=== PATIENT | male | born 1990 | race Caucasian/White ===

== ENCOUNTER 2016-10-23 12:09 | Emergency (ER) | payer SELFPAY ==
[2016-10-23] MEDS ORDERED: Famotidine IV* 10 MG/ML 2 ML (20 mg) IV SLOW PU ONE (12:19)
[2016-10-23] MEDS ORDERED: diPHENhydraMINE IV* 50 MG/ML 1 ml VIAL (BENADRYL) IV ONE (12:19)
[2016-10-23] MEDS ORDERED: NS 0.9% 1000 ML* 1,000 ML IV ONE (12:19)
[2016-10-23] MEDS ORDERED: Metoclopramide IV* 5 MG/ML 2 ML VIAL IV ONE (12:19)
[2016-10-23] MEDS ORDERED: methylPREDNISolone 125 MG* 2 ML VIAL IV ONE (12:35)
[2016-10-23 14:59] VITALS: BP 107/43
--- NOTE | 2016-10-23 22:10 | ED ---
Rhianna Valentin Thomas, scribed for Arnaldo Davis MD on 10/23/16 at 1312 . Allergic Reaction/Systemic - HPI Summary HPI Summary: The pt is a 26 y/o M presenting to the ED c/o an allergic reaction s/p a wasp sting to the thigh of his LLE at approximately 11:40. He is diffusely erythematous and reports swelling in his face. He denies SOB, throat tightening , dysphagia, or any pain at this time. The patient has treated the pain with topical aloe BUNDLE HELPER. PMHx: previously healthy. PSHx: neck surgery. SHx: smoking, some drinking. FHx: negative for bee allergy. - History of Current Complaint Chief Complaint: EDAllergicReaction Time Seen by Provider: 10/23/16 12:16 Hx Obtained From: Patient Onset/Duration: Sudden Onset, Started minutes ago - wasp sting at 11:40, Still Present Timing: Constant Pain Intensity: 0 Pain Scale Used: 0-10 Numeric Location: Diffuse - diffusely ertyhematous Character: Swelling - facial Aggravating Factor(s): Nothing Alleviating Factor(s): Nothing Associated Signs And Symptoms: Positive: Other: - POS: diffusely erythematous; NEG: SOB, dysphagia, or any pain. Negative: Cough Wheezing, Difficulty Breathing, Throat Tightening - Allergies/Home Medications Allergies/Adverse Reactions: Allergies Allergy/AdvReac Type Severity Reaction Status Date / Time No Known Allergies Allergy Verified 10/23/16 12:48 PMH/Surg Hx/FS Hx/Imm Hx Previously Healthy: Yes Cardiovascular History: Denies: Hx Congestive Heart Failure Respiratory History: Denies: Hx Cystic Fibrosis - Surgical History Surgery Procedure, Year, and Place: None. Infectious Disease History: No Infectious Disease History: Denies: Traveled Outside the [place] in Last 30 Days - Family History Known Family History: Positive: Other - NEG: bee allergy - Social History Alcohol Use: None Substance Use Type: Reports: None Smoking Status (MU): Never Smoked Tobacco Review of Systems Positive: Other - POS: facial swelling; NEG: throat tightening, dysphagia Negative: Shortness Of Breath Negative: Other - NEG: any pain Positive: Other - POS: diffusely erythematous All Other Systems Reviewed And Are Negative: Yes Physical Exam Triage Information Reviewed: Yes Vital Signs On Initial Exam: Initial Vitals Temp Pulse Resp BP Pulse Ox 100.2 F 96 18 135/66 100 10/23/16 12:11 10/23/16 12:11 10/23/16 12:11 10/23/16 12:11 10/23/16 12:11 Vital Signs Reviewed: Yes Appearance: Positive: Well-Appearing, No Pain Distress, Well-Nourished Skin: Positive: Warm, Skin Color Reflects Adequate Perfusion, Dry, Other - Diffuse urticaria. Diffusely erythematous Head/Face: Positive: Normal Head/Face Inspection Eyes: Positive: Normal ENT: Positive: Normal ENT inspection, Pharynx normal Neck: Positive: Supple, Nontender Respiratory/Lung Sounds: Positive: Clear to Auscultation, Breath Sounds Present Cardiovascular: Positive: RRR Abdomen Description: Positive: Nontender, Soft Bowel Sounds: Positive: Present Musculoskeletal: Positive: Normal Neurological: Positive: Normal Psychiatric: Positive: Normal, Affect/Mood Appropriate - Mei Coma Scale Coma Scale Total: 15 Diagnostics - Vital Signs Vital Signs Temp Pulse Resp BP Pulse Ox 10/23/16 13:00 63 100 10/23/16 12:32 99 10/23/16 12:30 132/75 10/23/16 12:25 100.4 F 72 15 132/75 99 10/23/16 12:20 96 22 99 10/23/16 12:18 137/70 10/23/16 12:11 100.2 F 96 18 135/66 100 - Laboratory Lab Statement: Any lab studies that have been ordered have been reviewed, and results considered in the medical decision making process. Allergic Reaction Course/Dx - Course Course Of Treatment: Mr. Darnell presented with an allergic reaction to a wasp sting and improved with medications here. He was observed and D/C'd. A prescription for an epipen was sent. - Diagnoses Provider Diagnoses: Allergic reaction to bee sting Discharge - Discharge Plan Condition: Stable Disposition: HOME Patient Education Materials: General Allergic Reaction (ED), Insect Bite or Sting (ED) Referrals: [facility] PHYSICIAN REFERRAL [Outside] No Primary Care Phys,NOPCP [Primary Care Provider] - Additional Instructions: Follow up with your primary care provider within a week. If you do not have a primary care provider, you can use the physician referral service to find one. Return to the emergency department for any new or worsening symptoms. The documentation as recorded by the Rhianna sal Thomas accurately reflects the service I personally performed and the decisions made by me, Arnaldo Davis MD.
== END 2016-10-23 15:10 | disposition home or self-care (01) ==
LOC: ED 12:09
DX: T63.441A Toxic effect of venom of bees, accidental (unintentional), initial encounter (principal); Y92.9 Unspecified place or not applicable
CPT/HCPCS: 96360; 96374; 96375; 99282; J1200; J2930